=== PATIENT | female | born 1950 | race Two or more races ===

== ENCOUNTER 2021-03-28 05:50 | Day surgery (SDC) | payer OTHER ==
[~2021-03-28 05:50] MED LIST: CLONAZEPAM2 M1 PO; CRESTOR5 MG PO; GABAPENTIN600 MG PO; RESTORIL30 MG PO; TERAZOSIN HCL5 MG PO
[2021-03-28] MEDS ORDERED: PERCOCET 5-3251 EACH PO (10:09)
== END 2021-03-28 12:30 | disposition home or self-care (01) ==
LOC: CIR.AMB 05:50
PROVIDERS: ATTEND Surgery
DX: C73 Malignant neoplasm of thyroid gland (principal); Z20.822 Contact with and (suspected) exposure to COVID-19